=== PATIENT | male | born 1945 | race Hispanic/Latino ===

== ENCOUNTER 2018-10-21 12:03 | Observation (INO) | payer OTHER ==
[~2018-10-21] VITALS: Ht 182.9 cm; Wt 90.9 kg
[2018-10-21 13:01] LABS: BASOPHILS % (AUTO) 0.6 % (0.0-5.0); HEMATOCRIT 41.2 % (42-54); LYMPHOCYTES % (AUTO) 37.8 % (21.0-51.0); MEAN CORPUSCULAR HEMOGLOBIN 27.6 pg (27.0-33.0); MEAN CORPUSCULAR HGB CONC 33.5 g/dL (32.0-36.0); MEAN CORPUSCULAR VOLUME 82.4 fL (79-99); MONOCYTES % (AUTO) 6.1 % (3.0-13.0); NEUTROPHILS % (AUTO) 53.5 % (40.0-77.0); PLATELET COUNT (AUTO) 147 K/uL (130-400); RED CELL DISTRIBUTION WIDTH 13.9 % (11.0-15.5); WHITE BLOOD COUNT (AUTO) 8.3 K/uL (4.8-10.8)
[2018-10-21 13:14] LABS: CREATININE 1.1 mg/dL (0.5-1.5); POTASSIUM 3.9 mmol/L (3.5-5.1)
[2018-10-21 13:19] LABS: ALBUMIN 3.5 g/dL (3.5-5.0); BILIRUBIN,TOTAL 0.6 mg/dL (0.2-1.0); TOTAL PROTEIN, SERUM 7.2 g/dL (6.0-8.3)
[2018-10-21 13:23] LABS: PARTIAL THROMBOPLASTIN TIME 25.2 SEC (26.3-35.5); PROTHROMBIN TIME 10.5 SEC (9.6-11.6)
[2018-10-21 13:37] LABS: B-TYPE NATRIURETIC PEPTIDE 202 pg/mL (0-100)
[2018-10-21] MEDS ORDERED: NITROGLYCERIN 1GM/1 INCH PACKET TD ONE (14:00)
[2018-10-21 14:16] LABS: APPEARANCE,URINE CLEAR (CLEAR); BILIRUBIN,URINE NEGATIVE (NEGATIVE); COLOR,URINE YELLOW (YELLOW); GLUCOSE, URINE (UA) NEGATIVE (NEGATIVE); KETONES,URINE NEGATIVE (NEGATIVE); LEUKOCYTE ESTERASE ,URINE NEGATIVE (NEGATIVE); NITRATE,URINE NEGATIVE (NEGATIVE); OCCULT BLOOD,URINE NEGATIVE (NEGATIVE); PH,URINE 5.5 (5.0-8.0); PROTEIN,URINE 30 mg/dL (NEGATIVE)
[2018-10-21 14:17] LABS: BACTERIA,URINE Rare /HPF (None Seen); RBC,URINE 0-1 /HPF (0-1); SQUAMOUS EPITHELIAL CELL,UR Rare /HPF (0-2); WBC,URINE 0-1 /HPF (0-1)
[2018-10-21 20:11] VITALS: BP 148/85
[2018-10-21] MEDS ORDERED: MORPHINE SULFATE 2 MG/ML 1ML SYG IVP PRN (20:30)
[2018-10-21] MEDS ORDERED: ATORVASTATIN CALCIUM 40 MG TABLET PO SCH (21:00)
[2018-10-21 21:19] LABS: CREATINE KINASE, TOTAL 64 U/L (21-232); MYOGLOBIN 51 ng/mL (10-92); TROPONIN I < 0.04 ng/mL (0.00-0.06)
[2018-10-21] MEDS: NITROGLYCERIN 1GM/1 INCH PACKET TD SCH (21:22)
[2018-10-21] MEDS: METOPROLOL TARTRATE 25 MG TAB PO SCH (21:22)
--- NOTE | 2018-10-21 21:33 | NUR ---
Refused Lipitor. States it makes him cough.
[2018-10-21 23:00] VITALS: BP 128/68
[2018-10-22 03:00] VITALS: BP 144/76
[2018-10-22 03:58] LABS: CREATINE KINASE, TOTAL 55 U/L (21-232); MYOGLOBIN 46 ng/mL (10-92); TROPONIN I < 0.04 ng/mL (0.00-0.06)
[2018-10-22] MEDS: NITROGLYCERIN 1GM/1 INCH PACKET TD SCH ×2 (04:29→12:46)
[2018-10-22 07:47] VITALS: BP 135/68
[2018-10-22] MEDS ORDERED: ASPIRIN 325 MG TABLET PO SCH (09:00)
[2018-10-22] MEDS: METOPROLOL TARTRATE 25 MG TAB PO SCH (10:13)
[2018-10-22 12:16] VITALS: BP 133/70
[2018-10-22 13:17] LABS: CREATINE KINASE, TOTAL 52 U/L (21-232); MYOGLOBIN 52 ng/mL (10-92); TROPONIN I < 0.04 ng/mL (0.00-0.06)
--- NOTE | 2018-10-22 13:46 | NUR ---
DC PLAN VISITED WITH PATIENT. PATIENT LIVES WITH SPOUSE. INDEPENDENT ABLE TO PERFORM ADL'S. PATIENT HAS NO SERVICES OR DME'S. FEELS SAFE TO RETURN HOME. Addendum: 10/22/18 at 1347 by KATELYN SALMON RN CM Amended: Links added.
[2018-10-22 16:02] VITALS: BP 129/68
[2018-10-22] MEDS ORDERED: METO25 PO (16:57)
[2018-10-22] MEDS ORDERED: ATOR40TA71 PO (16:57)
[2018-10-22] MEDS ORDERED: AEC81 PO (16:57)
== END 2018-10-22 17:36 | disposition home or self-care (01) ==
LOC: EDH 12:03 → EDHIP 18:04 → INTOOBSV 18:04 → 2DH 19:58
PROVIDERS: ADMIT Internal Medicine; ATTEND Internal Medicine
DX: R07.89 Other chest pain (principal); I10 Essential (primary) hypertension; E11.9 Type 2 diabetes mellitus without complications; E78.2 Mixed hyperlipidemia; Z87.891 Personal history of nicotine dependence; Z86.73 Personal history of transient ischemic attack (TIA), and cerebral infarction without residual deficits; Z86.718 Personal history of other venous thrombosis and embolism; Z90.89 Acquired absence of other organs
CPT/HCPCS: 36415 ×2; 71045; 80053; 81001; 82550 ×4; 83874 ×3; 83880; 84484 ×4; 85025; 85610; 85730; 93005 ×4; 93306; 99284; A4600; G0378 ×24

== ENCOUNTER 2019-03-21 19:19 | Observation (INO) | payer OTHER ==
[~2019-03-21] VITALS: Ht 182.9 cm; Wt 81.2 kg
[~2019-03-21 19:19] MED LIST: AEC81 PO; ATOR40TA71 PO; METO25 PO
[2019-03-21] MEDS ORDERED: ASPIRIN 81MG TAB.CHEW ONE (19:38)
[2019-03-21 19:42] LABS: BASOPHILS % (AUTO) 1.1 % (0.0-5.0); EOSINOPHILS % (AUTO) 3.8 % (0.0-8.0); LYMPHOCYTES % (AUTO) 38.9 % (21.0-51.0); MEAN CORPUSCULAR HEMOGLOBIN 28.2 pg (27.0-33.0); MEAN CORPUSCULAR HGB CONC 34.2 g/dL (32.0-36.0); MEAN CORPUSCULAR VOLUME 82.5 fL (79-99); MONOCYTES % (AUTO) 6.1 % (3.0-13.0); NEUTROPHILS % (AUTO) 50.1 % (40.0-77.0); NUCLEATED RED BLOOD CELLS 0.1 % (0.0-0.19); PLATELET COUNT (AUTO) 131 K/uL (130-400); RED BLOOD CELL COUNT(AUTO) 5.09 MIL/uL (4.50-6.20); RED CELL DISTRIBUTION WIDTH 14.6 % (11.0-15.5); WHITE BLOOD COUNT (AUTO) 8.8 K/uL (4.8-10.8)
[2019-03-21 19:50] LABS: CREATININE 1.3 mg/dL (0.5-1.5); POTASSIUM 3.8 mmol/L (3.5-5.1)
[2019-03-21 19:57] LABS: ALBUMIN 3.1 g/dL (3.5-5.0); BILIRUBIN,TOTAL 0.5 mg/dL (0.2-1.0); TOTAL PROTEIN, SERUM 6.9 g/dL (6.0-8.3)
[2019-03-21] MEDS ORDERED: SODIUM CHLORIDE 0.9% 1000ML 1,000 ML IV SCH (22:07)
[2019-03-21] MEDS ORDERED: NITROGLYCERIN 0.4 MG SL TAB SL PRN (22:15)
[2019-03-21] MEDS ORDERED: ACETAMINOPHEN 325 MG TAB PO PRN ×2 (22:15)
[2019-03-21] MEDS ORDERED: MORPHINE SULFATE 2 MG/ML 1ML SYG IV PRN (22:15)
[2019-03-21] MEDS ORDERED: ONDANSETRON HCL 4 MG/2 ML VIAL IV PRN (22:15)
[2019-03-21] MEDS ORDERED: MORPHINE SULFATE 4 MG/1ML SYG IV PRN (22:15)
[2019-03-21] MEDS ORDERED: HYDRALAZINE HCL 20 MG/ML VIAL IV PRN (22:15)
[2019-03-21 22:52] LABS: HEMOGLOBIN A1C 6.1 % (4.0-6.0)
[2019-03-21 22:56] LABS: CHOLESTEROL 153 mg/dL (<200); CREATINE KINASE, TOTAL 28 U/L (21-232); HDL CHOLESTEROL 114 mg/dL (29-71); LDL DIRECT 87 mg/dL (0-99); MYOGLOBIN 43 ng/mL (10-92); TRIGLYCERIDES 162 mg/dL (30-200)
[2019-03-22 04:43] VITALS: BP 134/81
--- NOTE | 2019-03-22 04:43 | NUR ---
ADMISSION NOTE: Admitted to floor per stretcher from ER. Fully awake and responsive. AOx3. Placed in bed comfortably. VS checked and recorded. Assessment done. (See CPOE flow chart for full assessment). Plan of care initiated. Attached to telemetry as ordered. Denies any chest pain at this time. No apparent distress noted. Monitored and cared for.
[2019-03-22] MEDS ORDERED: APIX5TAB PO (05:11)
[2019-03-22] MEDS ORDERED: METF-444 PO (05:19)
[2019-03-22 06:27] LABS: BASOPHILS % (AUTO) 0.6 % (0.0-5.0); EOSINOPHILS % (AUTO) 3.9 % (0.0-8.0); LYMPHOCYTES % (AUTO) 38.1 % (21.0-51.0); MEAN CORPUSCULAR HEMOGLOBIN 27.7 pg (27.0-33.0); MEAN CORPUSCULAR HGB CONC 33.9 g/dL (32.0-36.0); MEAN CORPUSCULAR VOLUME 81.5 fL (79-99); MONOCYTES % (AUTO) 6.2 % (3.0-13.0); NEUTROPHILS % (AUTO) 51.2 % (40.0-77.0); NUCLEATED RED BLOOD CELLS 0.1 % (0.0-0.19); PLATELET COUNT (AUTO) 129 K/uL (130-400); RED CELL DISTRIBUTION WIDTH 14.8 % (11.0-15.5); WHITE BLOOD COUNT (AUTO) 7.8 K/uL (4.8-10.8)
[2019-03-22 06:54] LABS: CARBON DIOXIDE 28 mmol/L (21-32); CHLORIDE 105 mmol/L (101-111); CREATINE KINASE, TOTAL 43 U/L (21-232); CREATININE 1.1 mg/dL (0.5-1.5); GLOMERULAR FILTR. RATE CALC 70 mL/min (>60); GLUCOSE,RANDOM 119 mg/dL (70-105); MYOGLOBIN 39 ng/mL (10-92); POTASSIUM 3.7 mmol/L (3.5-5.1); SODIUM SERUM 140 mmol/L (136-145); TROPONIN I < 0.04 ng/mL (0.00-0.06); UREA NITROGEN, BLOOD 18 mg/dL (7-18)
[2019-03-22] MEDS ORDERED: PNEUMOCOCCAL VACCINE POLYVALENT 0.5 ML/VIAL [PPV] IM SCH (07:00)
[2019-03-22 07:30] VITALS: BP 132/77
[2019-03-22] MEDS ORDERED: FLU VACC QS2019-20 36MOS UP/PF 60 MCG/0.5 ML ML IM ONE (09:00)
[2019-03-22] MEDS ORDERED: FLU VACC QS2019-20 36MOS UP/PF 60 MCG/0.5 ML ML IM SCH (09:00)
[2019-03-22] MEDS ORDERED: METOPROLOL TARTRATE 25 MG TAB PO SCH (09:00)
[2019-03-22] MEDS ORDERED: ASPIRIN 81 MG EC TAB PO SCH (09:00)
[2019-03-22] MEDS ORDERED: PNEUMOCOCCAL VACCINE POLYVALENT 0.5 ML/VIAL [PPV] IM ONE (09:00)
[2019-03-22] MEDS ORDERED: HEPARIN SODIUM 5000UNIT/ML 1ML VIAL SQ SCH (09:00)
[2019-03-22] MEDS ORDERED: FAMOTIDINE/PF 20 MG/2 ML VIAL IV SCH (09:00)
--- NOTE | 2019-03-22 12:55 | NUR ---
PATIENT DISCHARGE PATIENT DISCHARGE, IV DISCONTINUED, CATHLON INTACT, BLEEDING CONTROLLED, PATIENT TOLERATED WITHOUT INCIDENT.
--- NOTE | 2019-03-22 13:30 | NUR ---
CM NOTE PT IN OBS STATUS FOR CHEST PAIN WITH ANTICIPATED DC TODAY. NO TRIGGERS TO CM, NO CONCERNS VOICED, CM DETAILED ASSESSMENT DEFERRED Addendum: 03/25/19 at 1342 by CARLY ALVARENGA RN CM Amended: Links added.
== END 2019-03-22 13:00 | disposition home or self-care (01) ==
LOC: EDH 19:19 → EDHIP 22:28 → 3AH 03-22 04:45
PROVIDERS: ADMIT Internal Medicine; ATTEND Internal Medicine
DX: I25.110 Atherosclerotic heart disease of native coronary artery with unstable angina pectoris (principal); E11.65 Type 2 diabetes mellitus with hyperglycemia; E11.649 Type 2 diabetes mellitus with hypoglycemia without coma; E11.319 Type 2 diabetes mellitus with unspecified diabetic retinopathy without macular edema; N17.9 Acute kidney failure, unspecified; E44.1 Mild protein-calorie malnutrition; H54.7 Unspecified visual loss; E83.51 Hypocalcemia; I10 Essential (primary) hypertension; E78.5 Hyperlipidemia, unspecified; I48.91 Unspecified atrial fibrillation; Z23 Encounter for immunization; Z86.718 Personal history of other venous thrombosis and embolism; Z86.73 Personal history of transient ischemic attack (TIA), and cerebral infarction without residual deficits; Z95.0 Presence of cardiac pacemaker; Z79.01 Long term (current) use of anticoagulants; Z79.82 Long term (current) use of aspirin; Z79.84 Long term (current) use of oral hypoglycemic drugs; Z79.899 Other long term (current) drug therapy
CPT/HCPCS: 36415 ×2; 71045; 80048; 80053; 80061; 82550 ×2; 82948; 83036; 83690; 83874 ×2; 84484 ×3; 85025 ×2; 90471; 90472; 90732; 93005 ×3; 96361; 96372; 96374; 99284; G0378 ×14; J1644; J3490; Q2035; G0008; G0009

== ENCOUNTER 2019-08-02 17:25 | Observation (INO) | payer OTHER ==
[~2019-08-02] VITALS: Ht 182.9 cm; Wt 88.5 kg
[~2019-08-02 17:25] MED LIST changes: +APIX5TAB PO; +METF-444 PO; -METO25 PO
[2019-08-02] MEDS ORDERED: SODIUM CHLORIDE 0.9% 1000ML 1,000 ML IV ONE (18:24)
[2019-08-02 18:29] LABS: BASOPHILS % (AUTO) 0.4 % (0.0-5.0); EOSINOPHILS % (AUTO) 3.1 % (0.0-8.0); HEMATOCRIT 39.4 % (42-54); LYMPHOCYTES % (AUTO) 41.1 % (21.0-51.0); MEAN CORPUSCULAR HGB CONC 33.5 g/dL (32.0-36.0); MEAN CORPUSCULAR VOLUME 80.7 fL (79-99); MONOCYTES % (AUTO) 7.2 % (3.0-13.0); PLATELET COUNT (AUTO) 148 K/uL (130-400); RED BLOOD CELL COUNT(AUTO) 4.88 MIL/uL (4.50-6.20); RED CELL DISTRIBUTION WIDTH 14.4 % (11.0-15.5); WHITE BLOOD COUNT (AUTO) 8.2 K/uL (4.8-10.8)
[2019-08-02 18:38] LABS: CREATININE 1.7 mg/dL (0.5-1.5); POTASSIUM 4.2 mmol/L (3.5-5.1)
[2019-08-02 18:43] LABS: ALBUMIN 2.9 g/dL (3.5-5.0); BILIRUBIN,TOTAL 0.5 mg/dL (0.2-1.0); TOTAL PROTEIN, SERUM 6.1 g/dL (6.0-8.3)
[2019-08-02 19:29] LABS: INR 1.1 (0.85-1.15); PARTIAL THROMBOPLASTIN TIME 28.5 SEC (26.3-35.5); PROTHROMBIN TIME 11.8 SEC (9.6-11.6)
[2019-08-02] MEDS ORDERED: GLUCAGON 1MG KIT 1 MG ML IM PRN (19:45)
[2019-08-02] MEDS ORDERED: DEXTROSE 50%-WATER 50 ML DISP.SYRIN IV PRN (19:45)
[2019-08-02] MEDS ORDERED: DIPHENHYDRAMINE HCL 25 MG CAPSULE PO PRN (20:00)
[2019-08-02] MEDS ORDERED: ACETAMINOPHEN 325 MG TAB PO PRN ×2 (20:00)
[2019-08-02] MEDS ORDERED: NITROGLYCERIN 0.4 MG SL TAB SL PRN (20:00)
[2019-08-02] MEDS ORDERED: ONDANSETRON HCL 4 MG/2 ML VIAL IV PRN (20:00)
[2019-08-02 20:50] LABS: HEMOGLOBIN A1C 6.5 % (4.0-6.0)
[2019-08-02] MEDS: INSULIN HUMULIN R 100 UNIT/ML 3ML SQ SCH (21:00)
[2019-08-02 22:16] LABS: HEMATOCRIT 38.4 % (42-54)
[2019-08-02] MEDS ORDERED: FAMOTIDINE/PF 20 MG/2 ML VIAL IV ONE (22:45)
[2019-08-02 23:03] LABS: TROPONIN I 0.06 ng/mL (0.00-0.06)
[2019-08-03] MEDS ORDERED: MAGNESIUM 2GM PREMIX 50ML 50 ML IV SCH (00:45)
[2019-08-03] MEDS: SODIUM CHLORIDE 0.9% 500ML 500 ML IV SCH ×2 (00:45→10:45)
[2019-08-03] MEDS ORDERED: MAGNESIUM 2GM PREMIX 50ML 50 ML IV ONE (01:16)
[2019-08-03] MEDS ORDERED: SODIUM CHLORIDE 0.9% 1000ML 1,000 ML IV ONE (01:16)
[2019-08-03 02:20] VITALS: BP 151/95
--- NOTE | 2019-08-03 02:20 | NUR ---
ADMISSION NOTE: Admitted to floor per stretcher. Fully awake and responsive. Can amb with assist, pt legally blind both eyes. Placed in bed comfortably. VS checked and recorded. Assessment done. ( See CPOE flow chart for full assessment.) Has IV site to RFA # 20g with NS 1L at a rate of 50 ml/hr with piggyback of MgSO4 - patent and intact. was with the patient. Oriented to room and use of call light. Policies and procedures explained. Agreed and verbalized understanding. Plan of care initiated. Attached to Telemetry pad monitoring at bedside with VPace 70's. Kept monitored and observed for any unusual changes. Cared for. No apparent distress noted. Denies feeling of discomfort.
[2019-08-03 05:00] LABS: HEMATOCRIT 35.7 % (42-54); MEAN CORPUSCULAR HEMOGLOBIN 31.4 pg (27.0-33.0); MEAN CORPUSCULAR HGB CONC 32.5 g/dL (32.0-36.0); MEAN CORPUSCULAR VOLUME 96.5 fL (79-99); PLATELET COUNT (AUTO) 303 K/uL (130-400); RED CELL DISTRIBUTION WIDTH 12.8 % (11.0-15.5); WHITE BLOOD COUNT (AUTO) 9.7 K/uL (4.8-10.8)
[2019-08-03 05:24] LABS: EOSINOPHILS % (MANUAL) 1 % (1-6); LYMPHOCYTES % (MANUAL) 14 % (22-44); MAN.DIFF COMMENT-IMPRESSION MANUAL DIFFERENTIAL; MONOCYTES % (MANUAL) 3 % (2-9); PLATELET MORPHOLOGY COMMENT ADEQUATE; SEGMENTED NEUTROPHILS % 82 % (40-70)
[2019-08-03 05:36] LABS: ALANINE AMINOTRANSFERASE 18 U/L (12-78); ALBUMIN 2.6 g/dL (3.5-5.0); ASPARTATE AMINOTRANSFERASE 17 U/L (10-37); BILIRUBIN,TOTAL 0.3 mg/dL (0.2-1.0); CARBON DIOXIDE 25 mmol/L (21-32); CHLORIDE 107 mmol/L (101-111); CHOLESTEROL 100 mg/dL (<200); CREATINE KINASE, TOTAL 181 U/L (21-232); CREATININE 1.1 mg/dL (0.5-1.5); GLOMERULAR FILTR. RATE CALC 70 mL/min (>60); GLUCOSE,RANDOM 66 mg/dL (70-105); HDL CHOLESTEROL 39 mg/dL (29-71); LDL DIRECT 59 mg/dL (0-99); MYOGLOBIN 127 ng/mL (10-92); POTASSIUM 3.9 mmol/L (3.5-5.1); SODIUM SERUM 141 mmol/L (136-145); TOTAL PROTEIN, SERUM 6.2 g/dL (6.0-8.3); TRIGLYCERIDES 40 mg/dL (30-200); TROPONIN I < 0.04 ng/mL (0.00-0.06); UREA NITROGEN, BLOOD 14 mg/dL (7-18)
[2019-08-03] MEDS: INSULIN HUMULIN R 100 UNIT/ML 3ML SQ SCH ×2 (06:52→11:22)
[2019-08-03 08:00] VITALS: BP 150/96
[2019-08-03] MEDS ORDERED: FAMOTIDINE/PF 20 MG/2 ML VIAL IV SCH (09:00)
[2019-08-03 12:00] VITALS: BP 150/95
--- NOTE | 2019-08-03 14:06 | NUR ---
1330 patient signed IM Letter to [id number] and placed in chart under consent tab. Addendum: 08/03/19 at 1408 by SARAH LIMA CM wrong patient
--- NOTE | 2019-08-03 15:27 | NUR ---
PATIENT IS BLIND Addendum: 08/03/19 at 1533 by TAMIKO PURDY RN RN Amended: Links added.
--- NOTE | 2019-08-03 15:53 | NUR ---
RD NOTIFICATION Pt admitted for Melena, Hx of CVA, DM, H Pylori. Pt with negative FOBT. Pt tolerating Heart Healthy, 75gm CCD diet. Pt follows a regular diet at home and takes Vitamin D supplements. Recommend to continue current diet order. RD to continue to monitor. Please notify RD as additional nutrition concerns arise. Thank you. Addendum: 08/03/19 at [address] RD Amended: Links added.
== END 2019-08-03 18:10 | disposition home or self-care (01) ==
LOC: EDH 17:25 → EDHIP 19:42 → INTOOBSV 19:42 → 3BH 22:53 → EDHIP 08-03 00:05 → 3AH 08-03 01:14
PROVIDERS: ADMIT Hospitalist; ATTEND Hospitalist
DX: I95.9 Hypotension, unspecified (principal); K92.1 Melena; N17.9 Acute kidney failure, unspecified; E83.42 Hypomagnesemia; I48.91 Unspecified atrial fibrillation; E11.9 Type 2 diabetes mellitus without complications; E78.5 Hyperlipidemia, unspecified; Z86.73 Personal history of transient ischemic attack (TIA), and cerebral infarction without residual deficits; Z90.49 Acquired absence of other specified parts of digestive tract; Z79.01 Long term (current) use of anticoagulants
CPT/HCPCS: 36415 ×2; 80053 ×2; 80061; 82270; 82550 ×2; 82948 ×2; 83036; 83605 ×2; 83735 ×2; 83874 ×2; 84484 ×3; 85014; 85018; 85025 ×2; 85610; 85730; 86900; 86901; 93005 ×2; 96374; 99284; G0378 ×7; J3475; J3490 ×2; J7030 ×2

== ENCOUNTER → 2020-11-22 | Outpatient (CLI) | payer OTHER | END | disposition home or self-care (01) | LOC: RAH 09:54 | PROVIDERS: ATTEND Internal Medicine | DX: I69.891 Dysphagia following other cerebrovascular disease (principal) | CPT/HCPCS: 74230; 92611 ==

== ENCOUNTER → 2021-01-04 | Outpatient (CLI) | payer OTHER | END | disposition home or self-care (01) | LOC: SHCH 13:17 | PROVIDERS: ATTEND Internal Medicine Cardiovascular Disease | DX: I50.22 Chronic systolic (congestive) heart failure (principal) | CPT/HCPCS: 93306 ==

== ENCOUNTER 2021-03-14 17:45 | Observation (INO) | payer OTHER ==
[~2021-03-14] VITALS: Ht 182.9 cm; Wt 82.5 kg
[2021-03-14 20:02] LABS: BASOPHILS % (AUTO) 0.3 % (0.0-5.0); EOSINOPHILS % (AUTO) 1.9 % (0.0-8.0); HEMATOCRIT 46.8 % (42-54); LYMPHOCYTES % (AUTO) 43.1 % (21.0-51.0); MEAN CORPUSCULAR HEMOGLOBIN 26.5 pg (27.0-33.0); MEAN CORPUSCULAR HGB CONC 32.7 g/dL (32.0-36.0); MONOCYTES % (AUTO) 7.7 % (3.0-13.0); NEUTROPHILS % (AUTO) 46.8 % (40.0-77.0); PLATELET COUNT (AUTO) 142 K/uL (130-400); RED BLOOD CELL COUNT(AUTO) 5.78 MIL/uL (4.50-6.20); WHITE BLOOD COUNT (AUTO) 9.6 K/uL (4.8-10.8)
[2021-03-14 20:04] LABS: APPEARANCE,URINE Cloudy (CLEAR); BILIRUBIN,URINE Negative (NEGATIVE); COLOR,URINE Yellow (YELLOW); GLUCOSE, URINE (UA) Negative (NEGATIVE); KETONES,URINE Trace mg/dL (NEGATIVE); LEUKOCYTE ESTERASE ,URINE Negative (NEGATIVE); NITRATE,URINE Negative (NEGATIVE); OCCULT BLOOD,URINE Negative (NEGATIVE); PROTEIN,URINE POS 1+ mg/dL (NEGATIVE)
[2021-03-14 20:11] LABS: BACTERIA,URINE Few /HPF (None Seen); RBC,URINE 0-1 /HPF (0-1)
[2021-03-14 20:12] LABS: YEAST,URINE BUDDING Rare /HPF (None Seen)
[2021-03-14 20:14] LABS: SQUAMOUS EPITHELIAL CELL,UR Rare /HPF (0-2)
[2021-03-14 20:16] LABS: CREATININE 2.3 mg/dL (0.5-1.5); POTASSIUM 4.3 mmol/L (3.5-5.1)
[2021-03-14 20:25] LABS: ALBUMIN 3.6 g/dL (3.5-5.0); BILIRUBIN,TOTAL 0.7 mg/dL (0.2-1.0); TOTAL PROTEIN, SERUM 7.4 g/dL (6.0-8.3)
[2021-03-14 20:41] LABS: B-TYPE NATRIURETIC PEPTIDE 347 pg/mL (0-100)
[2021-03-15] MEDS ORDERED: ONDANSETRON 4MG INJ IV PRN
[2021-03-15] MEDS ORDERED: NITROGLYCERIN 0.4 MG SL TAB SL PRN
[2021-03-15] MEDS ORDERED: LACTULOSE 20 GM/30 ML UDCUP PO PRN
[2021-03-15] MEDS ORDERED: ACETAMINOPHEN 325 MG TAB PO PRN ×2
[2021-03-15] MEDS ORDERED: MAG/ALUM/SIMETH 30 ML UDCUP PO PRN
[2021-03-15] MEDS ORDERED: NITR0.4T50 SL (00:23)
[2021-03-15] MEDS ORDERED: APIX5TAB PO (00:23)
[2021-03-15] MEDS ORDERED: ISOS10TA8 PO (00:23)
[2021-03-15] MEDS ORDERED: ROSU20TA31 PO (00:23)
[2021-03-15] MEDS ORDERED: FURO40TA5 PO (00:23)
[2021-03-15] MEDS ORDERED: SACU1TAB7 PO (00:23)
[2021-03-15] MEDS ORDERED: SPIR25TA PO (00:23)
[2021-03-15] MEDS ORDERED: CARV12.511 PO (00:23)
[2021-03-15] MEDS ORDERED: ACET-2247 PO (00:23)
[2021-03-15] MEDS ORDERED: GLIP5TAB11 PO (00:23)
[2021-03-15] MEDS ORDERED: DRON400T7 PO (00:23)
[2021-03-15] MEDS ORDERED: METF-446 PO (00:23)
[2021-03-15 05:45] VITALS: BP 154/90
[2021-03-15 05:56] LABS: BASOPHILS % (AUTO) 0.5 % (0.0-5.0); EOSINOPHILS % (AUTO) 1.8 % (0.0-8.0); HEMATOCRIT 45.1 % (42-54); LYMPHOCYTES % (AUTO) 35.4 % (21.0-51.0); MEAN CORPUSCULAR HEMOGLOBIN 26.7 pg (27.0-33.0); MEAN CORPUSCULAR HGB CONC 32.8 g/dL (32.0-36.0); MEAN CORPUSCULAR VOLUME 81.4 fL (79-99); MONOCYTES % (AUTO) 7.5 % (3.0-13.0); NEUTROPHILS % (AUTO) 54.5 % (40.0-77.0); PLATELET COUNT (AUTO) 103 K/uL (130-400); RED BLOOD CELL COUNT(AUTO) 5.54 MIL/uL (4.50-6.20); RED CELL DISTRIBUTION WIDTH 13.8 % (11.0-15.5); WHITE BLOOD COUNT (AUTO) 7.9 K/uL (4.8-10.8)
[2021-03-15 06:06] LABS: CREATININE 1.8 mg/dL (0.5-1.5)
[2021-03-15 08:00] VITALS: BP 147/90
[2021-03-15] MEDS ORDERED: CARVEDILOL 12.5 MG TABLET PO SCH (09:00)
[2021-03-15] MEDS ORDERED: SPIRONOLACTONE 25 MG TAB PO SCH (09:00)
[2021-03-15] MEDS ORDERED: ISOSORBIDE MONONITRATE 20 MG TABLET PO SCH (09:00)
[2021-03-15] MEDS ORDERED: ATORVASTATIN 40 MG TABLET PO SCH (09:00)
[2021-03-15] MEDS ORDERED: FUROSEMIDE 20 MG TABLET PO SCH (09:00)
[2021-03-15] MEDS ORDERED: APIXABAN 5 MG TABLET PO SCH (09:00)
[2021-03-15] MEDS ORDERED: PANTOPRAZOLE 40 MG TAB DR PO SCH (09:00)
[2021-03-15 11:01] VITALS: BP 151/78
[2021-03-15 16:00] VITALS: BP 128/65
== END 2021-03-15 16:45 | disposition left against medical advice (07) ==
LOC: EDH 17:45 → EDHIP 23:20 → 4BH 03-15 05:35
PROVIDERS: ADMIT Internal Medicine Critical Care Medicine; ATTEND Internal Medicine Critical Care Medicine
DX: I95.9 Hypotension, unspecified (principal); R00.1 Bradycardia, unspecified; I48.0 Paroxysmal atrial fibrillation; E11.21 Type 2 diabetes mellitus with diabetic nephropathy; E11.36 Type 2 diabetes mellitus with diabetic cataract; I11.0 Hypertensive heart disease with heart failure; I50.22 Chronic systolic (congestive) heart failure; I25.10 Atherosclerotic heart disease of native coronary artery without angina pectoris; I25.5 Ischemic cardiomyopathy; I25.82 Chronic total occlusion of coronary artery; I25.2 Old myocardial infarction; E78.00 Pure hypercholesterolemia, unspecified; E78.5 Hyperlipidemia, unspecified; T82.119A Breakdown (mechanical) of unspecified cardiac electronic device, initial encounter; Z79.01 Long term (current) use of anticoagulants; Z79.82 Long term (current) use of aspirin; Z79.84 Long term (current) use of oral hypoglycemic drugs; Z79.899 Other long term (current) drug therapy; Z86.19 Personal history of other infectious and parasitic diseases; Z86.73 Personal history of transient ischemic attack (TIA), and cerebral infarction without residual deficits; Z87.891 Personal history of nicotine dependence; Z90.49 Acquired absence of other specified parts of digestive tract; Z98.890 Other specified postprocedural states; Z95.810 Presence of automatic (implantable) cardiac defibrillator; Y71.2 Prosthetic and other implants, materials and accessory cardiovascular devices associated with adverse incidents
CPT/HCPCS: 36415 ×2; 71045; 80048; 80053; 81001; 82550; 82948 ×3; 83880; 84484 ×2; 85025 ×2; 92610; 93005 ×2; 99285; G0378 ×18

== ENCOUNTER → 2022-01-06 | Outpatient (CLI) | payer OTHER ==
[~2022-01-06] MED LIST changes: +ACET-2247 PO; +CARV12.511 PO; +DRON400T7 PO; +FURO40TA5 PO; +GLIP5TAB11 PO; +ISOS10TA8 PO; +METF-446 PO; +NITR0.4T50 SL; +ROSU20TA31 PO; +SACU1TAB7 PO; +SPIR25TA PO
== END | disposition home or self-care (01) ==
LOC: RAH 15:47
PROVIDERS: ATTEND Internal Medicine Cardiovascular Disease
DX: I50.22 Chronic systolic (congestive) heart failure (principal)
CPT/HCPCS: 71046

== ENCOUNTER 2022-03-13 05:51 | Day surgery (SDC) | payer OTHER ==
[2022-03-11 10:09] LABS: BASOPHILS % (AUTO) 0.4 % (0.0-5.0); EOSINOPHILS % (AUTO) 1.4 % (0.0-8.0); HEMATOCRIT 38.7 % (42-54); LYMPHOCYTES % (AUTO) 19.6 % (21.0-51.0); MEAN CORPUSCULAR HEMOGLOBIN 22.1 pg (27.0-33.0); MEAN CORPUSCULAR HGB CONC 30.2 g/dL (32.0-36.0); MEAN CORPUSCULAR VOLUME 73.2 fL (79-99); MONOCYTES % (AUTO) 7.2 % (3.0-13.0); PLATELET COUNT (AUTO) 179 K/uL (130-400); RED BLOOD CELL COUNT(AUTO) 5.29 MIL/uL (4.50-6.20); RED CELL DISTRIBUTION WIDTH 18.6 % (11.0-15.5); WHITE BLOOD COUNT (AUTO) 7.4 K/uL (4.8-10.8)
[2022-03-11 10:19] LABS: POTASSIUM 4.6 mmol/L (3.5-5.1)
[2022-03-11 10:20] LABS: APPEARANCE,URINE CLOUDY (CLEAR); BILIRUBIN,URINE NEGATIVE (NEGATIVE); COLOR,URINE YELLOW (YELLOW); GLUCOSE, URINE (UA) NEGATIVE (NEGATIVE); KETONES,URINE NEGATIVE (NEGATIVE); LEUKOCYTE ESTERASE ,URINE NEGATIVE Leu/uL (NEGATIVE); NITRATE,URINE NEGATIVE (NEGATIVE); OCCULT BLOOD,URINE SMALL (NEGATIVE); PH,URINE 5.5 (5.0-8.0); PROTEIN,URINE 100 mg/dL (NEGATIVE); UROBILINOGEN,URINE 6 mg/dL (0.2-1.0)
[2022-03-11 10:21] LABS: INR 1.3 (0.85-1.15)
[2022-03-11 10:23] LABS: PARTIAL THROMBOPLASTIN TIME 31.6 SEC (26.3-35.5)
[2022-03-11 10:27] LABS: BACTERIA,URINE RARE /HPF (None Seen); MUCUS,URINE RARE LPF (None Seen); SQUAMOUS EPITHELIAL CELL,UR RARE /HPF (0-2)
[2022-03-11 10:40] LABS: B-TYPE NATRIURETIC PEPTIDE 3190 pg/mL (0-100)
[2022-03-12 11:28] VITALS: BP 107/70
[~2022-03-13] VITALS: Ht 182.9 cm; Wt 79.4 kg
[2022-03-13] VITALS (14 sets, daily range): BP systolic 117–134; BP diastolic 59–94
[~2022-03-13 05:51] MED LIST changes: +0.9%NACL 1000ML 1,000 ML IV SCH; -ACET-2247 PO; -AEC81 PO; -ATOR40TA71 PO; -CARV12.511 PO; -DRON400T7 PO; +EZET10TA48 PO; -ISOS10TA8 PO; -METF-446 PO; +METO-408 PO; -SPIR25TA PO
[2022-03-13] MEDS ORDERED: FENTANYL CITRATE PF 50 MCG/1 ML 2ML VIAL ONE (07:13)
[2022-03-13] MEDS ORDERED: LIDOCAINE HCL 1% 20 ML VIAL ONE (07:13)
[2022-03-13] MEDS ORDERED: MIDAZOLAM HCL 1 MG/ML 2ML VIAL ONE (07:13)
== END 2022-03-13 12:40 | disposition home or self-care (01) ==
LOC: DAH 05:51
PROVIDERS: ATTEND Internal Medicine Cardiovascular Disease
DX: I48.0 Paroxysmal atrial fibrillation (principal); I13.0 Hypertensive heart and chronic kidney disease with heart failure and stage 1 through stage 4 chronic kidney disease, or unspecified chronic kidney disease; N18.9 Chronic kidney disease, unspecified; I50.43 Acute on chronic combined systolic (congestive) and diastolic (congestive) heart failure; H54.7 Unspecified visual loss; I25.2 Old myocardial infarction; Z79.01 Long term (current) use of anticoagulants; Z79.84 Long term (current) use of oral hypoglycemic drugs; Z79.899 Other long term (current) drug therapy; Z98.890 Other specified postprocedural states; Z82.49 Family history of ischemic heart disease and other diseases of the circulatory system
CPT/HCPCS: 80048; 83880; 85025; 85610; 85730; 81001; 36415; 71045; 93005; 93451; 82948 ×2; C1894 ×3; C1769 ×2; C1760; J3010; J7030; J2250; J1644; A4215; A4222; A4221; A4663; A4216; A4606; A4223 ×3; 99156; 99157

== ENCOUNTER 2022-04-07 06:34 | Day surgery (SDC) | payer OTHER ==
[2022-04-03 10:50] LABS: BASOPHILS % (AUTO) 0.6 % (0.0-5.0); EOSINOPHILS % (AUTO) 1.2 % (0.0-8.0); HEMATOCRIT 38.4 % (42-54); LYMPHOCYTES % (AUTO) 19.5 % (21.0-51.0); MEAN CORPUSCULAR HEMOGLOBIN 21.3 pg (27.0-33.0); MEAN CORPUSCULAR HGB CONC 29.7 g/dL (32.0-36.0); MEAN CORPUSCULAR VOLUME 71.9 fL (79-99); MONOCYTES % (AUTO) 6.7 % (3.0-13.0); NEUTROPHILS % (AUTO) 71.8 % (40.0-77.0); PLATELET COUNT (AUTO) 218 K/uL (130-400); RED BLOOD CELL COUNT(AUTO) 5.34 MIL/uL (4.50-6.20); RED CELL DISTRIBUTION WIDTH 19.1 % (11.0-15.5); WHITE BLOOD COUNT (AUTO) 8.8 K/uL (4.8-10.8)
[2022-04-03 11:02] LABS: INR 1.48 (0.85-1.15); PROTHROMBIN TIME 15.8 SEC (9.6-11.6)
[2022-04-03 11:04] LABS: PARTIAL THROMBOPLASTIN TIME 35.7 SEC (26.3-35.5)
[2022-04-03 11:07] LABS: CREATININE 1.9 mg/dL (0.5-1.5); POTASSIUM 3.6 mmol/L (3.5-5.1)
[2022-04-04 09:36] VITALS: BP 138/78
[~2022-04-07] VITALS: Ht 182.9 cm; Wt 77.3 kg
[2022-04-07] VITALS (9 sets, daily range): BP systolic 80–108; BP diastolic 55–69
[~2022-04-07 06:34] MED LIST changes: -0.9%NACL 1000ML 1,000 ML IV SCH; -FURO40TA5 PO; -GLIP5TAB11 PO; -METO-408 PO; -NITR0.4T50 SL; +SACU1TAB PO; -SACU1TAB7 PO; +TORS20TA4 PO
[2022-04-07] MEDS: 0.9%NACL 1000ML 1,000 ML IV SCH ×2 (08:58→15:40)
[2022-04-07] MEDS ORDERED: HEPARIN 10,000 UNIT/10ML (1,000 UNIT/ML) VIAL ONE (09:18)
[2022-04-07] MEDS ORDERED: MIDAZOLAM HCL 1 MG/ML 2ML VIAL ONE ×2 (09:18→10:23)
[2022-04-07] MEDS ORDERED: MEPERIDINE-PF 25 MG/ML SYG ONE ×2 (09:18→10:23)
[2022-04-07] MEDS ORDERED: LIDOCAINE HCL 1% 20 ML VIAL ONE (09:18)
== END 2022-04-07 15:00 | disposition home or self-care (01) ==
LOC: DAH 06:34
PROVIDERS: ATTEND Internal Medicine Cardiovascular Disease
DX: I48.20 Chronic atrial fibrillation, unspecified (principal); I44.7 Left bundle-branch block, unspecified; I13.0 Hypertensive heart and chronic kidney disease with heart failure and stage 1 through stage 4 chronic kidney disease, or unspecified chronic kidney disease; N18.9 Chronic kidney disease, unspecified; I50.43 Acute on chronic combined systolic (congestive) and diastolic (congestive) heart failure; I25.2 Old myocardial infarction; Z79.01 Long term (current) use of anticoagulants; Z79.899 Other long term (current) drug therapy; Z82.49 Family history of ischemic heart disease and other diseases of the circulatory system
CPT/HCPCS: 80048; 85025; 85610; 85730; 36415; 93005 ×2; 93650; 93619; 82948 ×2; C1894; A4649 ×2; C1732; J7030; J1644 ×3; J2250; J2175; A4215; A4222; A4221; A4663; A4216; A4606; A4223 ×3; 99156; 99157